=== PATIENT | female | born 1985 | race Caucasian/White ===

== ENCOUNTER → 2016-10-11 | Outpatient (CLI) | payer MEDICAID ==
[~2016-10-11] MED LIST: AMOXICILLIN 50500 MG PO; BROMFED DM COU473 ML PO; ETODOLAC400 MG PO; KEFLEX 500MG.500 MG PO; KEFLEX750 M1 PO; MOTRIN400 MG PO; NAPROSYN 500MG500 MG PO; NAPROXEN SODIU500 MG PO; NOMEDS *; NOMEDS XX; NORCO 325 MG-51 TAB PO; PERCOCET 5/3251 EACH PO; PREDNISONE 20MG20 MG PO; PRENATAL VITAMI1 TA3 PO; PROAIR HFA0.09 MG/AC IH; PROMETHAZINE D118 ML PO; PROVENTIL0.09 MG/A1 IH; TYLENOL W/CODEI1 TA2 PO
== END ==
LOC: LAB 11:24
DX: S83.241A Other tear of medial meniscus, current injury, right knee, initial encounter (principal); Z01.812 Encounter for preprocedural laboratory examination

== ENCOUNTER 2016-10-17 09:19 | Day surgery (SDC) | payer MEDICAID ==
[~2016-10-17] VITALS: Ht 157.5 cm; Wt 74.8 kg
--- NOTE | 2016-10-17 12:55 | Anesthesia Record ---
Anesthesia Record Part I Total IV fluids: 2000 EBL (ml): 1 Urine Output: 0 B/P: 126/79 % SaO2: 97 Pulse: 94 Resps: 16 Temp: 97.6 Patient is: Drowsy, Nasal O2, Stable Stable to PACU at: 1245 at 1255
--- NOTE | 2016-10-17 12:56 | Anesthesia Record ---
Anesthesia Record Part II Discharge time: 1315 Destination: Same day surgery PACU nurse assessment review? Yes Patient is: Stable Anesthesia complications? No at 1258
--- NOTE | 2016-10-17 13:23 | Operative Note ---
Procedure/Operative Record Date of Procedure: 10/17/16 Pre-op diagnosis: RIGHT Knee medial meniscal tear Post-op diagnosis: Same Procedure performed: RIGHT knee medial meniscal tear debridement Surgeon: Oswaldo Cheng Anesthesia: Gen. anesthetic Indications: Posterior medial RIGHT knee pain believe secondary to a tear. MRI indicates this may be a repairable tear versus debridement arthroscopic intervention is indicated to relieve pain, improve ambulation and restore function Findings: Under anesthesia of the RIGHT knee stable ligamentously. The patient did have approximate seven degrees of hyperextension. Arthroscopically the patella femoral joint appeared unremarkable though there was increased [id number] patella mobility. 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 The medial lateral gutters were unremarkable. No symptomatic plica was noted. The anterior cruciate ligament was intact. The posterior cruciate ligament was not visualized secondary to synovium which was not removed. The lateral compartment was pristine except for small area of grade 2 chondromalacia of the tibial plateau posteriorly. Medially, the anterior two thirds of the medial meniscus was unremarkable. There was an area of grade 2 chondromalacia in the area of the meniscal tear which was located in the posterior one third of the medial meniscus. This was an undersurface tear in the red white zone. Description of procedure: The patient was taken to the operating room and a general anesthetic administered. The patient underwent an examination under anesthesia and then the RIGHT leg was prepped and draped in the usual sterile fashion. An anterolateral arthroscopic portal was made and the 4 mm arthroscope introduced. After evaluating the patellofemoral joint and the gutters, we brought the scope into the notch, photographed the anterior cruciate ligament, and then used the arthroscope to optimize a placement of a spinal needle in the medial compartment for creation of a portal. The anteromedial portal was created and the surgery conducted through these two portals. We place the patient in a figure 4 position and inspected laterally. We then turned attention medially stressing the knee carefully against the lateral post which allowed access to the medial knee. The knee was flexed and the tibia externally rotated and the knee extended to bring the posterior elements more forward. We used a probe to elevate the meniscus and localize the undersurface tear. We then evaluated it and found it to be appropriate for a repair. We roughened the torn surface and placed a meniscal anchor by [employer]. After the two PEEK anchors were placed, we threaded the knot pusher over the suture and carefully placed to advance the knot. Resistance was met and despite careful technique, the small suture parted. The broken end was retrieved with a grasper however could not be gripped successfully to allow re- engagement of the knot pusher. We conferred with the audiovisual production specialist and agreed that removing this anchor and considering placement of the second anchor was appropriate. The anchor was removed using a basket instruments to cut the sutures. One peek anchor was retrieved. The second was past the capsule and in appropriate position and thus was not retrievable. After consideration of placement of another anchor versus proceeding with debridement, it was felt most appropriate to simply excise this portion of the meniscus. We did so using a combination of basket cutters, a 4 mm rotary shaver, and a [employer] VAPR radiofrequency wand. The tear was excised to stable meniscus. Bits and pieces of debris created by the meniscus debridement was removed. We inspected the remainder of the joint, flushed with arthroscopic fluid, flex and extend the knee through several cycles, palpated the popliteal fossa, and suction excess arthroscopic fluid from the joint. Portals were closed with nylon sutures rest is applied, the patient transported to the recovery room in satisfactory condition EBL (ml): 1 Implant: Mite[employer] meniscal repair anchor (PEEK) x1 at 1324
[2016-10-17 14:54] VITALS: BP 110/76
== END 2016-10-17 14:52 | disposition home or self-care (01) ==
LOC: SDC 09:19
PROVIDERS: Orthopaedic Surgery
PROC: 0SBC4ZZ Excision of Right Knee Joint, Percutaneous Endoscopic Approach (ICD-10-PCS; principal; 2016-10-17 11:00)
DX: M23.231 Derangement of other medial meniscus due to old tear or injury, right knee (principal)
CPT/HCPCS: C1713; J0131; J2405